=== PATIENT | female | born 1985 | race Caucasian/White ===

== ENCOUNTER 2021-04-23 10:18 | Outpatient (CLI) | payer MEDICAID ==
[2021-04-23 15:07] LABS: BASOPHILS # (AUTO) 0.1 10^3/uL (0.0-0.1); EOSINOPHILS # (AUTO) 0.1 10^3/uL (0.0-0.7); LYMPHOCYTES # (AUTO) 1.7 10^3/uL (1.5-3.5); LYMPHOCYTES % (AUTO) 33.3 %; MEAN CORPUSCULAR HEMOGLOBIN 28.2 pg (27.0-31.0); MEAN CORPUSCULAR HGB CONC 31.7 g/dL (32.0-36.0); MEAN CORPUSCULAR VOLUME 88.9 fL (81.0-99.0); MEAN PLATELET VOLUME 9.4 fL (7.9-10.8); MONOCYTES # (AUTO) 0.3 10^3/uL (0.0-1.0); MONOCYTES % (AUTO) 6.6 %; NEUTROPHILS # (AUTO) 2.9 10^3/uL (1.5-6.6); NEUTROPHILS % (AUTO) 56.9 %; PLT - PLATELET COUNT 405 10^3/uL (130-450); RED BLOOD COUNT 4.61 10^6/uL (4.20-5.40); RED CELL DISTRIBUTION WIDTH 13.3 % (12.0-15.0)
[2021-04-23 15:29] LABS: ALBUMIN 4.4 g/dL (3.2-5.5); ALBUMIN/GLOBULIN RATIO 1.3 (1.0-2.2); BILIRUBIN,TOTAL 0.4 mg/dL (0.2-1.0); CALCIUM 10.1 mg/dL (8.5-10.3); CREATININE 0.9 mg/dL (0.4-1.0); POTASSIUM 4.4 mmol/L (3.5-5.0); TOTAL PROTEIN 7.7 g/dL (6.7-8.2)
[2021-04-23 15:43] LABS: THYROID STIMULATING HORMONE 2.63 uIU/mL (0.34-5.60)
[2021-04-23 15:46] LABS: FERRITIN 10.9 ng/mL (11.0-306.8)
== END 2021-04-23 10:19 | disposition home or self-care (01) ==
LOC: LAB.S 10:18
PROVIDERS: ATTEND Internal Medicine
DX: L65.9 Nonscarring hair loss, unspecified (principal); Z79.899 Other long term (current) drug therapy
CPT/HCPCS: 36415; 80053; 82728; 84443; 85025

== ENCOUNTER 2021-07-02 12:53 | Outpatient (CLI) | payer MEDICAID | END 2021-07-02 12:54 | disposition home or self-care (01) | LOC: LAB.S 12:53 | PROVIDERS: ATTEND Physician Assistant Medical | DX: L60.8 Other nail disorders (principal); L65.9 Nonscarring hair loss, unspecified; R73.09 Other abnormal glucose | CPT/HCPCS: 36415; 81599; 83036; 84630 ==

== ENCOUNTER 2021-07-07 13:03 | Outpatient (CLI) | payer MEDICAID ==
--- NOTE | 2021-07-08 16:14 | Mammography Report ---
BILATERAL DIGITAL SCREENING MAMMOGRAM 3D/2D: 07/07/2021 CLINICAL: Baseline exam Routine screening. No prior exams were available for comparison. There are scattered fibroglandular elements in both br easts. There is a 0.7 cm oval equal density focal asymmetry in the left breast at 3 o'clock middle depth. No other significant masses, calcifications, or other findings are seen in either breast. IMPRESSION: INCOMPLETE: NEEDS ADDITIONAL IMAGING EVALUATION The 0.7 cm oval equal density focal asymmetry in the left breast resembles a cyst or a lymph node and is indeterminate. Additional views with possible ultrasound are recommended. This exam was interpreted at Station ID: [id number]. NOTE: For mammograms, a report in lay terms will be sent to the patient. Approximately 15% of breast malignancies will not be visualized mammographically. In the management of a palpable breast mass, a negative mammogram must not discourage biopsy of a clinically suspicious lesion. Electronically Signed By: Reggie Montelongo M.D. aty/:07/07/2021 16:26:33 ACR BI-RADS Category 0: Incomplete 3340F PARENCHYMAL PATTERN: (A) - The breast(s) demonstrate(s) scattered fibroglandular densities. BI-RADS CATEGORY: (0) - 0 Mammo and [place] [id number] Immediate follow-up LATERALITY: (L)
== END 2021-07-07 13:04 | disposition home or self-care (01) ==
LOC: DI.S 13:03
PROVIDERS: ATTEND Internal Medicine
DX: Z12.31 Encounter for screening mammogram for malignant neoplasm of breast (principal); R92.8 Other abnormal and inconclusive findings on diagnostic imaging of breast

== ENCOUNTER 2022-07-17 08:27 | Outpatient (CLI) | payer MEDICAID ==
--- NOTE | 2022-07-20 09:16 | Ultrasound Report ---
LIMITED ULTRASOUND OF LEFT BREAST: 07/17/2022 CLINICAL: Patient returns today to evaluate an asymmetry in the left breast. No prior exams were available for comparison. Color flow and real-time ultrasound of the left breast 1-6 o'clock region were performed. Gibbons scal e images of the real-time examination were reviewed. There is a 0.8 cm x 0.6 cm x 0.4 cm complicated cyst in the left breast at 2 o'clock middle depth 5 c m from the nipple. IMPRESSION: PROBABLY BENIGN The 0.8 cm x 0.6 cm x 0.4 cm complicated cyst in the left breast is probably benign, stable on mammog nettie. There is no abnormality seen in the left breast to correspond with the stable focal asymmetry at 6 o' clock. A follow-up mammogram and an ultrasound in 6 months is recommended to demonstrate stability. This exam was interpreted at Station ID: [id number]. Electronically Signed By: Gus Seaman M.D. lc/:07/17/2022 10:43:17 Ultrasound BI-RADS: 3 Probably benign BI-RADS CATEGORY: (3) - 3 Mammo and [place] [id number] 6 month follow-up LATERALITY: (B)
--- NOTE | 2022-07-20 09:16 | Mammography Report ---
BILATERAL DIGITAL DIAGNOSTIC MAMMOGRAM 3D/2D WITH SPOT COMPRESSION: 07/17/2022 CLINICAL: Patient returns today to evaluate a focal asymmetry in the left breast. Due for bilateral i maging. Comparison is made to exam dated: 07/07/2021 mammogram - [facility]. There are scattered areas of fibroglandular density in both breasts (category b / 25%-50% glandular t issue). There is a 0.7 cm x 0.8 cm stable oval mass in the left breast at 2 o'clock middle depth. There also is a stable focal asymmetry in the left breast at 6 o'clock middle depth. No other significant masses, calcifications, or other findings are seen in either breast. IMPRESSION: INCOMPLETE: NEEDS ADDITIONAL IMAGING EVALUATION The 0.7 cm x 0.8 cm stable oval mass in the left breast at 2 o'clock middle depth is indeterminate. An ultrasound is recommended. The stable focal asymmetry in the left breast at 6 o'clock middle depth is indeterminate. An ultraso und is recommended. Based on the Tyrer Cuzick model (a risk assessment model) the patients lifetime risk is 15.7% and he r 10 year risk is 1.6%. According to the ACR, ACS, and NCCN guidelines, an annual breast MRI exam chilo ng with mammogram is recommended if the patients lifetime risk is 20% or greater. This exam was interpreted at Station ID: [id number]. NOTE: For mammograms, a report in lay terms will be sent to the patient. Approximately 15% of breast malignancies will not be visualized mammographically. In the management of a palpable breast mass, a negative mammogram must not discourage biopsy of a clinically suspicious lesion. Electronically Signed By: Gus Seaman M.D. lc/:07/17/2022 10:41:05 ACR BI-RADS Category 0: Incomplete 3340F PARENCHYMAL PATTERN: (A) - The breast(s) demonstrate(s) scattered fibroglandular densities. BI-RADS CATEGORY: (0) - 0 Ultrasound [id number] Immediate follow-up LATERALITY: (B)
== END 2022-07-17 08:28 | disposition home or self-care (01) ==
LOC: DI 08:27
PROVIDERS: ATTEND Nurse Practitioner
DX: R92.8 Other abnormal and inconclusive findings on diagnostic imaging of breast (principal); N60.02 Solitary cyst of left breast

== ENCOUNTER 2022-10-06 09:51 | Outpatient (CLI) | payer MEDICAID ==
[2022-10-06 14:55] LABS: BASOPHILS # (AUTO) 0.1 10^3/uL (0.0-0.1); BASOPHILS % (AUTO) 0.7 %; EOSINOPHILS # (AUTO) 0.2 10^3/uL (0.0-0.7); EOSINOPHILS % (AUTO) 3.4 %; HCT - HEMATOCRIT 37.6 % (37.0-47.0); HGB - HEMOGLOBIN 12.1 g/dL (12.0-16.0); LYMPHOCYTES # (AUTO) 2.9 10^3/uL (1.5-3.5); LYMPHOCYTES % (AUTO) 40.8 %; MEAN CORPUSCULAR HEMOGLOBIN 28.1 pg (27.0-31.0); MEAN CORPUSCULAR HGB CONC 32.2 g/dL (32.0-36.0); MEAN CORPUSCULAR VOLUME 87.4 fL (81.0-99.0); MEAN PLATELET VOLUME 10.2 fL (7.9-10.8); MONOCYTES # (AUTO) 0.6 10^3/uL (0.0-1.0); MONOCYTES % (AUTO) 7.9 %; NEUTROPHILS # (AUTO) 3.4 10^3/uL (1.5-6.6); NEUTROPHILS % (AUTO) 46.9 %; PLT - PLATELET COUNT 350 10^3/uL (130-450); RED CELL DISTRIBUTION WIDTH 14.6 % (12.0-15.0); WHITE BLOOD COUNT 7.1 x10^3/uL (4.8-10.8)
[2022-10-06 15:34] LABS: ALBUMIN 4.2 g/dL (3.2-5.5); ALBUMIN/GLOBULIN RATIO 1.4 (1.0-2.2); ALKALINE PHOSPHATASE 65 IU/L (42-121); ALT ALANINE AMINOTRANSFERASE 16 IU/L (10-60); AST ASPARTATE AMINOTRANSFERASE 14 IU/L (10-42); BILIRUBIN,TOTAL 0.4 mg/dL (0.2-1.0); BUN - BLOOD UREA NITROGEN 14 mg/dL (6-20); CALCIUM 9.5 mg/dL (8.5-10.3); CARBON DIOXIDE - CO2 27 mmol/L (21-32); CHLORIDE 108 mmol/L (101-111); CHOLESTEROL 184 mg/dL; CREATININE 0.9 mg/dL (0.6-1.3); GFR - MDRD 70 (>89); GLUCOSE 92 mg/dL (74-104); HDL CHOLESTEROL 46 mg/dL; LDL CHOLESTEROL,CALCULATED 123 mg/dL; LDL/HDL RATIO 2.7 (<4.4); POTASSIUM 4.4 mmol/L (3.5-4.5); SODIUM 139 mmol/L (135-145); TOTAL PROTEIN 7.1 g/dL (6.4-8.9); TRIGLYCERIDES 76 mg/dL (48-352); VLDL CHOLESTEROL 15 mg/dL
[2022-10-06 15:44] LABS: THYROID STIMULATING HORMONE 2.31 uIU/mL (0.34-5.60)
--- NOTE | 2022-10-06 16:46 | XRAY Report ---
PROCEDURE: Cervical Spine Comp w/Flex/Ext INDICATIONS: NUMBNESS AND TINGLING IN RIGHT ARM TECHNIQUE: 7 views of the cervical spine were acquired. COMPARISON: None. FINDINGS: Bones: No fractures or dislocations to the T1 level. No suspicious bony lesions. There is normal r mehul of motion between flexion and extension, with preserved normal bony alignment. No significant osvaldo ny foraminal narrowing on the bilateral oblique films. Soft tissues: Prevertebral soft tissues are normal in thickness. IMPRESSION: Unremarkable cervical spine films with flexion and extension imaging, as well as bilater al oblique imaging Reviewed by: Herberth Hebert MD on 10/06/2022 4:45 PM PDT Approved by: Herberth Hebert MD on 10/06/2022 4:45 PM PDT Station ID: [id number]
== END 2022-10-06 09:52 | disposition home or self-care (01) ==
LOC: DI.S 09:51
PROVIDERS: ATTEND Registered Nurse
DX: R20.2 Paresthesia of skin (principal); Z79.899 Other long term (current) drug therapy; Z13.220 Encounter for screening for lipoid disorders; Z13.29 Encounter for screening for other suspected endocrine disorder
CPT/HCPCS: 36415; 80053; 80061; 83721; 84443; 85025

== ENCOUNTER 2023-01-13 09:54 | Outpatient (CLI) | payer MEDICAID ==
--- NOTE | 2023-01-14 17:02 | Mammography Report ---
UNILATERAL LEFT DIGITAL DIAGNOSTIC MAMMOGRAM 3D/2D: 01/13/2023 Comparison is made to exams dated: 07/17/2022 mammogram and 07/07/2021 mammogram - [facility]. There are scattered areas of fibroglandular density in the left breast (category b / 25%-50% glandula r tissue). There is a 9 mm round high density asymmetry with a circumscribed margin in the left breast at 2 o'cl ock anterior depth. This is seen in additional views. This is not significantly changed. There also is a 7 mm oval asymmetry in the left breast at 5 o'clock middle depth. This is seen in ad ditional views but previously there was no ultrasound correlate. This is not significantly changed. No other significant masses or calcifications are seen in the breast. IMPRESSION: INCOMPLETE: NEEDS ADDITIONAL IMAGING EVALUATION The 9 mm round high density asymmetry in the left breast at 2 o'clock anterior depth is stable. An ul trasound is recommended to document stability. This was performed immediately following this exam. The 7 mm oval asymmetry in the left breast at 5 o'clock middle depth persists and remains indetermina te. An ultrasound is recommended. This was performed immediately following this exam. Based on the Tyrer Cuzick model (a risk assessment model) the patients lifetime risk is 15.6% and he r 10 year risk is 1.7%. According to the ACR, ACS, and NCCN guidelines, an annual breast MRI exam chilo ng with mammogram is recommended if the patients lifetime risk is 20% or greater. This exam was interpreted at Station ID: [id number]. NOTE: For mammograms, a report in lay terms will be sent to the patient. Approximately 15% of breast malignancies will not be visualized mammographically. In the management of a palpable breast mass, a negative mammogram must not discourage biopsy of a clinically suspicious lesion. Electronically Signed By: Bibi hardy/:01/13/2023 12:14:39 ACR BI-RADS Category 0: Incomplete 3340F PARENCHYMAL PATTERN: (A) - The breast(s) demonstrate(s) scattered fibroglandular densities. BI-RADS CATEGORY: (0) - 0 Ultrasound [id number] Immediate follow-up LATERALITY: (B)
--- NOTE | 2023-01-14 17:03 | Ultrasound Report ---
LIMITED ULTRASOUND OF LEFT BREAST: 01/13/2023 CLINICAL: 6 month follow-up of cysts. Patient returns today to evaluate an asymmetry in the left [address]. Comparison is made to exams dated: 07/17/2022 ultrasound, 07/17/2022 mammogram, and 07/07/2021 mammogram - [facility]. Color flow ultrasound of the left breast 2 o'clock and 5 o'clock regions was performed. Gibbons scale images of the real-time examination were reviewed. There is a 0.9 cm x 0.8 cm x 0.5 cm oval complex cyst with an irregular internal wall in the left annemarie ast at 2 o'clock middle depth 5 cm from the nipple. This oval complex cyst is hypoechoic with an ech ogenic boundary. This abnormality is increased in size and suspicion, and correlates with mammograph y findings. Color flow imaging demonstrates that there is no vascularity present. IMPRESSION: SUSPICIOUS OF MALIGNANCY The 0.9 cm x 0.8 cm x 0.5 cm oval complex cyst in the left breast has slightly increased in size and is more suspicious. An ultrasound guided biopsy is recommended. There is no abnormality seen in the left breast to correspond with the mammography finding at 5 o'ethan ck which is consistent with normal fibroglandular tissue or an intramammary lymph node. Findings and recommendations were discussed with the patient by Dr. Reggie Montelongo in person at time of exa m. This exam was interpreted at Station ID: [id number]. Electronically Signed By: Bibi hardy/:01/13/2023 12:18:35 Ultrasound BI-RADS: 4a Low suspicion for malignancy BI-RADS CATEGORY: (4a) - Low Susp Biopsy [id number] Immediate follow-up LATERALITY: (L)
== END 2023-01-13 09:55 | disposition home or self-care (01) ==
LOC: DI 09:54
PROVIDERS: ATTEND Registered Nurse
DX: N60.02 Solitary cyst of left breast (principal); R92.322 Mammographic fibroglandular density, left breast

== ENCOUNTER 2023-01-21 12:39 | Outpatient (CLI) | payer MEDICAID ==
[2023-01-21] MEDS ORDERED: LIDOCAINE-MPF 1% 5 ML VIAL TD ONE (14:30)
[2023-01-21] MEDS ORDERED: LIDOCAINE-MPF 1% 5 ML VIAL ONE (14:37)
--- NOTE | 2023-01-25 12:14 | Ultrasound Report ---
ULTRASOUND GUIDED BIOPSY LEFT BREAST WITH MARKING DEVICE INSERTED: 01/21/2023 CLINICAL: Left breast mass. PATIENT CONSENT: Risks (minor bleeding, infection, vasovagal reaction and repeat procedure), benefits and alternatives were explained to the patient and written informed consent was obtained. Correlation is made to exams dated: 01/13/2023 ultrasound, 01/13/2023 mammogram, 07/17/2022 ultrasound, 07/17/2022 mammogram, and 07/07/2021 mammogram - [facility] with [facility]. An ultrasound guided biopsy using real-time ultrasound was performed for the oval mass located in the left breast at 3 o'clock posterior depth. This was described on the previous mammography report. T he skin was prepped in the usual manner. Local anesthetic was administered to the access site. The abnormality was approached from the lateral aspect. A biopsy needle was placed adjacent to the abnor mality under ultrasound guidance. Once the needle was documented to be in the correct location, a sp ecimen was obtained using a BARD biopsy device. A titanium clip was inserted into the biopsy cavity. A sterile dressing was applied to the access site. The specimen was sent to the laboratory for pat hological analysis. IMPRESSION: ULTRASOUND GUIDED BIOPSY BENIGN Ultrasound guided biopsy of the mass in the left breast at 3 o'clock posterior depth was performed. Pathology indicates benign finding (fibrocystic/fibroadenomatoid changes, apocrine metaplasia). Path ology results are concordant with imaging findings. Return to screening mammography recommended. This exam was interpreted at Station ID: [id number]. Luis Seaman M.D. ,/:01/25/2023 09:22:55 BI-RADS CATEGORY: () - Unspecified - other recall n/a LATERALITY: (B)
--- NOTE | 2023-01-25 12:14 | Mammography Report ---
UNILATERAL LEFT DIGITAL DIAGNOSTIC MAMMOGRAM POST-PROCEDURE IMAGING FOR MARKER PLACEMENT: 01/21/2023 CLINICAL: Post left breast ultrasound biopsy clip placement imaging. Comparison is made to exams dated: 01/13/2023 mammogram, 07/17/2022 mammogram, and 07/07/2021 mammogram - [facility]. There are scattered areas of fibroglandular density in the left breast (category b / 25%-50% glandula r tissue). There is a marker clip in the appropriate position in the left breast anterior depth central to the n ipple seen on the mediolateral oblique view only. This marker clip placement is at the biopsy site. IMPRESSION: POST PROCEDURE MAMMOGRAM FOR MARKER PLACEMENT There was a successful marker clip placement in the left breast anterior depth central to the nipple seen on the mediolateral oblique view only. Based on the Tyrer Cuzick model (a risk assessment model) the patients lifetime risk is 15.6% and he r 10 year risk is 1.7%. According to the ACR, ACS, and NCCN guidelines, an annual breast MRI exam chilo ng with mammogram is recommended if the patients lifetime risk is 20% or greater. This exam was interpreted at Station ID: [id number]. NOTE: For mammograms, a report in lay terms will be sent to the patient. Approximately 15% of breast malignancies will not be visualized mammographically. In the management of a palpable breast mass, a negative mammogram must not discourage biopsy of a clinically suspicious lesion. Electronically Signed By: Luis hopper/jonathan:01/22/2023 15:08:31 ACR BI-RADS Category Post-procedure mammogram for marker placement PARENCHYMAL PATTERN: (A) - The breast(s) demonstrate(s) scattered fibroglandular densities. BI-RADS CATEGORY: () - Unspecified - other recall n/a LATERALITY: (B)
== END 2023-01-21 12:40 | disposition home or self-care (01) ==
LOC: DI 12:39
PROVIDERS: ATTEND Registered Nurse
DX: N60.12 Diffuse cystic mastopathy of left breast (principal); N60.22 Fibroadenosis of left breast; N60.82 Other benign mammary dysplasias of left breast; R92.322 Mammographic fibroglandular density, left breast
CPT/HCPCS: 19083